=== PATIENT | male | born 1930 | race Caucasian/White ===

== ENCOUNTER → 2016-06-11 | Outpatient (CLI) | payer OTHER ==
[~2016-06-11] MED LIST: CHOL3000 PO; COEN150C4 PO; CYAN500L3 PO; GLUC1500 PO; LOSA50TA6 PO; METF-312 PO; METO-169 PO; OMEG120017 PO; SIMV-8 PO; VITA400C97 PO; WARF2.5T PO
[2016-06-11 09:12] LABS: Albumin 3.5 g/dL (3.4-5.0); BUN/Creatinine Ratio 17.2; Bilirubin, Total 0.7 mg/dL (0.2-1.0); Calcium 9.1 mg/dL (8.5-10.1); Total Protein 7.7 g/dL (6.4-8.2)
== END | disposition home or self-care (01) ==
LOC: LAB 07:26
PROVIDERS: ATTEND Internal Medicine
DX: N40.0 Benign prostatic hyperplasia without lower urinary tract symptoms (principal); E11.9 Type 2 diabetes mellitus without complications; E78.5 Hyperlipidemia, unspecified; N18.3 Chronic kidney disease, stage 3 (moderate)
CPT/HCPCS: 36415; 80053; 80061; 82607; 83036

== ENCOUNTER → 2016-09-09 | Outpatient (CLI) | payer OTHER ==
[2016-09-09 11:57] LABS: Cholesterol 215 mg/dL (< 200); HDL Cholesterol 43 mg/dL (40-59); LDL Cholesterol 164 mg/dL (< 100); Triglycerides 121 mg/dL (< 150)
== END | disposition home or self-care (01) ==
LOC: LAB 10:47
PROVIDERS: ATTEND Internal Medicine
DX: Z00.00 Encounter for general adult medical examination without abnormal findings (principal)
CPT/HCPCS: 36415; 80061; 82043; 83036

== ENCOUNTER → 2016-12-02 | Outpatient (CLI) | payer OTHER ==
[~2016-12-02] MED LIST changes: -METF-312 PO; +METF-370 PO
[2016-12-02 15:09] LABS: Basophils # (auto) 0.1 uL; Basophils % (auto) 0.6 % (0.0-2.0); CONDITION Y; Eosinophils # (auto) 0.1 uL; Eosinophils % (auto) 1.1 % (0.0-7.0); Hematocrit 39.7 % (41.0-53.0); Hemoglobin 13.4 g/dL (13.5-17.5); Lymphocytes # (auto) 1.7 uL; Mean Corpuscular Hemoglobin 33.4 pg (28.0-32.0); Mean Corpuscular Hgb Conc. 33.8 g/dL (32.0-36.0); Mean Corpuscular Volume 99.1 fL (80.0-100.0); Mean Platelet Volume 8.3 fL (7.4-10.4); Monocytes % (auto) 10.1 % (0.0-12.0); Neutrophils # (auto) 6.6 uL; Neutrophils % (auto) 70.2 % (37.0-80.0); Platelet Count (auto) 230 10^3/uL (140-450); Red Cell Distribution Width 15.1 % (11.6-16.0); White Blood Cell 9.4 10^3/uL (4.4-10.8)
[2016-12-02 15:14] LABS: Urine Bilirubin Negative (Negative); Urine Blood Negative /uL (Negative); Urine Color Yellow (Yellow); Urine Glucose Normal (Normal); Urine Ketone Negative (Negative); Urine Nitrite Negative (Negative); Urine RBC 1 /hpf (0 - 3); Urine Squamous Epithelial Cell FEW /hpf (<5); Urine Urobilinogen Normal (Negative)
[2016-12-02 15:23] LABS: INR 2.49 (0.9-1.15); Partial Thromboplastin Time 44.1 sec (22.64-33.71)
[2016-12-02 15:25] LABS: Albumin 3.5 g/dL (3.4-5.0); Bilirubin, Total 0.4 mg/dL (0.2-1.0); Calcium 8.8 mg/dL (8.5-10.1); Potassium 4.2 mmol/L (3.5-5.1); Total Protein 7.9 g/dL (6.4-8.2)
[2016-12-02 15:26] LABS: Prothrombin Time 27.4 sec (9.37-12.3)
== END | disposition home or self-care (01) ==
LOC: LAB 14:37
PROVIDERS: ATTEND Internal Medicine
DX: Z01.818 Encounter for other preprocedural examination (principal)
CPT/HCPCS: 36415; 80053; 81001; 85025; 85610; 85730

== ENCOUNTER 2017-02-18 13:30 | Emergency (ER) | payer OTHER ==
[~2017-02-18] VITALS: Ht 172.7 cm; Wt 90.7 kg
[2017-02-18 14:06] VITALS: BP 128/71
== END 2017-02-18 15:05 | disposition home or self-care (01) ==
LOC: ER 13:30
DX: S52.501A Unspecified fracture of the lower end of right radius, initial encounter for closed fracture (principal); S52.611A Displaced fracture of right ulna styloid process, initial encounter for closed fracture; E11.9 Type 2 diabetes mellitus without complications; I10 Essential (primary) hypertension; Z86.73 Personal history of transient ischemic attack (TIA), and cerebral infarction without residual deficits; Z95.1 Presence of aortocoronary bypass graft; Z79.899 Other long term (current) drug therapy; W10.9XXA Fall (on) (from) unspecified stairs and steps, initial encounter; Y93.89 Activity, other specified; Y99.8 Other external cause status; Y92.89 Other specified places as the place of occurrence of the external cause

== ENCOUNTER → 2017-05-02 | Outpatient (CLI) | payer OTHER ==
[2017-05-02 12:49] LABS: Albumin 3.2 g/dL (3.4-5.0); BUN/Creatinine Ratio 16.7; Bilirubin, Total 0.5 mg/dL (0.2-1.0); Calcium 10.4 mg/dL (8.5-10.1); Potassium 4.4 mmol/L (3.5-5.1); Total Protein 8.1 g/dL (6.4-8.2)
== END | disposition home or self-care (01) ==
LOC: LAB 09:57
PROVIDERS: ATTEND Physician Assistant
DX: I10 Essential (primary) hypertension (principal); E11.9 Type 2 diabetes mellitus without complications; E78.5 Hyperlipidemia, unspecified
CPT/HCPCS: 36415; 80053; 80061; 83036

== ENCOUNTER 2017-06-09 18:22 | Emergency (ER) | payer OTHER ==
[~2017-06-09] VITALS: Ht 170.2 cm; Wt 87.1 kg
[2017-06-09 18:31] VITALS: BP 98/50
[2017-06-09] MEDS ORDERED: BACITRACIN TOP OINT 1 UD PKG TOP ONE (21:30)
== END 2017-06-09 21:51 | disposition home or self-care (01) ==
LOC: ER 18:22
DX: S01.01XA Laceration without foreign body of scalp, initial encounter (principal); I25.10 Atherosclerotic heart disease of native coronary artery without angina pectoris; I10 Essential (primary) hypertension; E11.9 Type 2 diabetes mellitus without complications; Z95.1 Presence of aortocoronary bypass graft; Z79.01 Long term (current) use of anticoagulants; Z79.899 Other long term (current) drug therapy; W22.8XXA Striking against or struck by other objects, initial encounter; Y93.89 Activity, other specified; Y99.8 Other external cause status; Y92.89 Other specified places as the place of occurrence of the external cause
CPT/HCPCS: 12002

== ENCOUNTER → 2017-11-07 | Outpatient (CLI) | payer OTHER ==
[2017-11-07 11:54] LABS: Basophils # (auto) 0 uL; Basophils % (auto) 0.6 % (0.0-2.0); Eosinophils # (auto) 0.1 uL; Hemoglobin 13.2 g/dL (13.5-17.5); Lymphocytes # (auto) 1.4 uL; Lymphocytes % (auto) 19.6 % (10.0-50.0); Mean Corpuscular Hemoglobin 32.1 pg (28.0-32.0); Mean Corpuscular Hgb Conc. 32.3 g/dL (32.0-36.0); Mean Corpuscular Volume 99.4 fL (80.0-100.0); Monocytes # (auto) 0.7 uL; Monocytes % (auto) 10.4 % (0.0-12.0); Neutrophils # (auto) 4.7 uL; Neutrophils % (auto) 68.4 % (37.0-80.0); Platelet Count (auto) 151 10^3/uL (140-450); Red Blood Cells 4.13 10^6/uL (4.5-5.90); Red Cell Distribution Width 15.1 % (11.8-14.3); White Blood Cell 6.9 10^3/uL (4.4-10.8)
[2017-11-07 12:56] LABS: Albumin 3.4 g/dL (3.4-5.0); Bilirubin, Total 0.7 mg/dL (0.2-1.0); Calcium 9.7 mg/dL (8.5-10.1); Total Protein 7.4 g/dL (6.4-8.2)
== END | disposition home or self-care (01) ==
LOC: LAB 11:05
PROVIDERS: ATTEND Physician Assistant
DX: E78.5 Hyperlipidemia, unspecified (principal); I48.1 Persistent atrial fibrillation; G47.33 Obstructive sleep apnea (adult) (pediatric); E11.22 Type 2 diabetes mellitus with diabetic chronic kidney disease; I12.9 Hypertensive chronic kidney disease with stage 1 through stage 4 chronic kidney disease, or unspecified chronic kidney disease; N18.3 Chronic kidney disease, stage 3 (moderate); Z79.899 Other long term (current) drug therapy; R80.9 Proteinuria, unspecified; Z79.01 Long term (current) use of anticoagulants
CPT/HCPCS: 36415; 80053; 80061; 83036; 84153; 84154; 85025

== ENCOUNTER → 2018-02-02 | Outpatient (CLI) | payer OTHER | END | disposition home or self-care (01) | LOC: XYW 10:59 | PROVIDERS: ATTEND Internal Medicine Cardiovascular Disease | DX: I08.1 Rheumatic disorders of both mitral and tricuspid valves (principal); I48.2 Chronic atrial fibrillation; I27.20 Pulmonary hypertension, unspecified; J44.9 Chronic obstructive pulmonary disease, unspecified; E11.9 Type 2 diabetes mellitus without complications; I11.0 Hypertensive heart disease with heart failure; I50.9 Heart failure, unspecified | CPT/HCPCS: 93306 ==

== ENCOUNTER → 2018-07-20 | Outpatient (CLI) | payer OTHER ==
[~2018-07-20] MED LIST changes: +LOSA-46 PO; -LOSA50TA6 PO; -METF-370 PO
== END | disposition home or self-care (01) ==
LOC: RT 08:38
PROVIDERS: ATTEND Internal Medicine Pulmonary Disease
DX: R06.00 Dyspnea, unspecified (principal); I10 Essential (primary) hypertension; Z87.891 Personal history of nicotine dependence
CPT/HCPCS: 94060; 94727; 94729; J7611; 94640

== ENCOUNTER → 2018-11-09 | Outpatient (CLI) | payer OTHER ==
[~2018-11-09] MED LIST changes: +FURO40TA4 PO; +HYDR50TA69 PO; +POTA-167 PO
== END | disposition home or self-care (01) ==
LOC: XYW 10:35
PROVIDERS: ATTEND Internal Medicine
DX: I08.1 Rheumatic disorders of both mitral and tricuspid valves (principal); I48.91 Unspecified atrial fibrillation; I70.0 Atherosclerosis of aorta
CPT/HCPCS: 93306

== ENCOUNTER → 2018-12-19 | Outpatient (CLI) | payer OTHER ==
[~2018-12-19] VITALS: Ht 170.2 cm; Wt 89.8 kg
[~2018-12-19] MED LIST changes: +ADENOSINE 76 MG in GIVE UN-DILUTED 0 ML IV STA; -LOSA-46 PO; +LOSA-69 PO
[2018-12-19 09:30] VITALS: BP 147/72
== END | disposition home or self-care (01) ==
LOC: XY 07:31
PROVIDERS: ATTEND Internal Medicine
DX: R06.02 Shortness of breath (principal)
CPT/HCPCS: 78452; 93017; A9500; J0153

== ENCOUNTER → 2019-01-29 | Outpatient (CLI) | payer OTHER ==
[~2019-01-29] MED LIST changes: -ADENOSINE 76 MG in GIVE UN-DILUTED 0 ML IV STA
[2019-01-29 08:05] LABS: Basophils # (auto) 0.2 uL; Basophils % (auto) 3.2 % (0.0-2.0); Eosinophils # (auto) 0.1 uL; Eosinophils % (auto) 1.2 % (0.0-7.0); Hematocrit 39.1 % (41.0-53.0); Hemoglobin 13.2 g/dL (13.5-17.5); Lymphocytes % (auto) 18.8 % (10.0-50.0); Mean Corpuscular Hemoglobin 33.7 pg (28.0-32.0); Mean Corpuscular Hgb Conc. 33.8 g/dL (32.0-36.0); Mean Corpuscular Volume 99.8 fL (80.0-100.0); Monocytes # (auto) 0.6 uL; Monocytes % (auto) 12.6 % (0.0-12.0); Neutrophils # (auto) 3.3 uL; Neutrophils % (auto) 64.2 % (37.0-80.0); Platelet Count (auto) 142 10^3/uL (140-450); Red Blood Cells 3.92 10^6/uL (4.5-5.90); White Blood Cell 5.1 10^3/uL (4.4-10.8)
[2019-01-29 09:36] LABS: Potassium 5.5 mmol/L (3.5-5.1)
[2019-01-29 09:46] LABS: Albumin 3.2 g/dL (3.4-5.0); BUN/Creatinine Ratio 20.2; Bilirubin, Total 0.6 mg/dL (0.2-1.0); Calcium 9.2 mg/dL (8.5-10.1); Total Protein 7.4 g/dL (6.4-8.2)
== END | disposition home or self-care (01) ==
LOC: LAB 07:46
PROVIDERS: ATTEND Physician Assistant
DX: Z12.5 Encounter for screening for malignant neoplasm of prostate (principal); I11.0 Hypertensive heart disease with heart failure; I50.32 Chronic diastolic (congestive) heart failure; J44.9 Chronic obstructive pulmonary disease, unspecified; I48.2 Chronic atrial fibrillation; E11.319 Type 2 diabetes mellitus with unspecified diabetic retinopathy without macular edema
CPT/HCPCS: 36415; 80053; 80061; 83036; 84153; 85025

== ENCOUNTER → 2019-04-12 | Outpatient (CLI) | payer OTHER | END | disposition home or self-care (01) | LOC: XYW 09:37 | PROVIDERS: ATTEND Internal Medicine | DX: I08.1 Rheumatic disorders of both mitral and tricuspid valves (principal); I48.91 Unspecified atrial fibrillation; I27.20 Pulmonary hypertension, unspecified; Z87.891 Personal history of nicotine dependence; Z88.1 Allergy status to other antibiotic agents; Z95.1 Presence of aortocoronary bypass graft; Z98.890 Other specified postprocedural states; Z82.49 Family history of ischemic heart disease and other diseases of the circulatory system | CPT/HCPCS: 93306 ==

== ENCOUNTER → 2019-11-22 | Outpatient (CLI) | payer OTHER ==
[2019-11-22 10:45] LABS: Basophils # (auto) 0.1 10 ^3/uL (0-0.2); Eosinophils # (auto) 0.1 10 ^3/uL (0-0.8); Eosinophils % (auto) 1.1 % (0.0-7.0); Hematocrit 37.6 % (41.0-53.0); Lymphocytes # (auto) 0.8 10 ^3/uL (0.4-5.4); Lymphocytes % (auto) 12.9 % (10.0-50.0); Mean Corpuscular Hemoglobin 32.1 pg (28.0-32.0); Mean Corpuscular Hgb Conc. 31.9 g/dL (32.0-36.0); Mean Corpuscular Volume 100.5 fL (80.0-100.0); Monocytes # (auto) 0.7 10 ^3/uL (0-1.3); Neutrophils # (auto) 4.8 10 ^3/uL (1.6-8.6); Platelet Count (auto) 158 10^3/uL (140-450); Red Blood Cells 3.75 10^6/uL (4.5-5.90); Red Cell Distribution Width 17.2 % (11.8-14.3); White Blood Cell 6.5 10^3/uL (4.4-10.8)
[2019-11-22 11:34] LABS: Potassium 4.8 mmol/L (3.5-5.1)
[2019-11-22 11:44] LABS: Albumin 3.3 g/dL (3.4-5.0); BUN/Creatinine Ratio 15.9; Calcium 9.1 mg/dL (8.5-10.1)
[2019-11-22 12:05] LABS: Total Protein 7.5 g/dL (6.4-8.2)
== END | disposition home or self-care (01) ==
LOC: LAB 10:02
PROVIDERS: ATTEND Physician Assistant
DX: I50.9 Heart failure, unspecified (principal); J44.9 Chronic obstructive pulmonary disease, unspecified; E78.5 Hyperlipidemia, unspecified; G47.33 Obstructive sleep apnea (adult) (pediatric); R35.1 Nocturia
CPT/HCPCS: 36415; 80053; 80061; 84153; 85025

== ENCOUNTER 2019-12-10 12:35 | Inpatient (IN) | payer OTHER ==
[~2019-12-10] VITALS: Ht 167.6 cm; Wt 89.0 kg
[2019-12-10] MEDS ORDERED: ZINC SULFATE 220mg CAP or TAB PO ONE (13:00)
[2019-12-10] MEDS ORDERED: ASCORBIC ACID 500 MG TAB PO ONE (13:00)
[2019-12-10] MEDS ORDERED: AZITHROMYCIN 500MG/ 250ML 250 ML IV ONE (13:00)
[2019-12-10] MEDS ORDERED: methylPREDNISolone SOD SUCC 125 MG/2 ML VL IV ONE (13:00)
[2019-12-10] MEDS ORDERED: MORPHINE SULF INJ 2 MG/ML SYRINGE 1ML IV PRN ×3 (14:00→15:00)
[2019-12-10] MEDS ORDERED: NITROGLYCERIN 0.4 MG SL TAB SL PRN ×2 (14:00→15:00)
[2019-12-10 14:03] LABS: Basophils # (auto) 0 10 ^3/uL (0-0.2); Basophils % (auto) 0.7 % (0.0-2.0); Eosinophils # (auto) 0 10 ^3/uL (0-0.8); Lymphocytes % (auto) 11.4 % (10.0-50.0); Monocytes # (auto) 0.5 10 ^3/uL (0-1.3)
[2019-12-10 14:05] LABS: Eosinophils % (auto) 0.4 % (0.0-7.0); Hematocrit 35.4 % (41.0-53.0); Hemoglobin 11.9 g/dL (13.5-17.5); Lymphocytes # (auto) 0.6 10 ^3/uL (0.4-5.4); Mean Corpuscular Hgb Conc. 33.6 g/dL (32.0-36.0); Mean Corpuscular Volume 110.1 fL (80.0-100.0); Monocytes % (auto) 10.3 % (0.0-12.0); Neutrophils # (auto) 3.8 10 ^3/uL (1.6-8.6); Neutrophils % (auto) 77.2 % (37.0-80.0); Platelet Count (auto) 171 10^3/uL (140-450); Red Blood Cells 3.21 10^6/uL (4.5-5.90); Red Cell Distribution Width 17.9 % (11.8-14.3); White Blood Cell 4.9 10^3/uL (4.4-10.8)
[2019-12-10 14:21] LABS: Albumin 3.3 g/dL (3.4-5.0); Anion Gap 3 (5-15); Blood Urea Nitrogen 29 mg/dL (7-18); Calcium 9.2 mg/dL (8.5-10.1); Carbon Dioxide 26 mmol/L (21-32); Chloride 114 mmol/L (98-107); Glucose 122 mg/dL (74-106); Sodium 143 mmol/L (136-145)
[2019-12-10 14:24] LABS: Lactic Acid w/Reflex 4.2 mmol/L (0.4-2.0)
[2019-12-10 14:29] LABS: Alanine Aminotransferase 21 U/L (16-61); Alkaline Phosphatase 132 U/L (45-117); Aspartate Aminotransferase 31 U/L (15-37); BUN/Creatinine Ratio 17.3; Bilirubin, Total 0.7 mg/dL (0.2-1.0); CRP High Sensitivity 1.12 mg/dL (< 0.3); GFR African American 50 mL/min; GFR Non-African American 41 mL/min; Lactate Dehydrogenase 293 U/L (87-241); Total Protein 8.1 g/dL (6.4-8.2)
[2019-12-10 14:32] LABS: Potassium 6.1 mmol/L (3.5-5.1)
[2019-12-10] MEDS ORDERED: CALCIUM GLUC 4.65meq/50ml D5AE 50 ML IV ONE (14:45)
[2019-12-10] MEDS ORDERED: SODIUM BICARBONATE 8.4 % INJ 50ML VIAL IV ONE (14:45)
[2019-12-10] MEDS ORDERED: CYANOCOBALAMIN (B-12) 1000 MCG/1 ML VIAL IM ONE (14:45)
[2019-12-10] MEDS ORDERED: SODIUM BICARBONATE 8.4% INJ 50ML SYRINGE IV ONE (15:00)
[2019-12-10] MEDS ORDERED: HYDROcodone-ACET 5/325MG TAB PO PRN (15:00)
[2019-12-10] MEDS ORDERED: ALUM & MAG HYDROX-SIMETH LIQ(MAALOX) 30 ML PO PRN (15:00)
[2019-12-10] MEDS ORDERED: FUROSEMIDE 40 MG/4 ML VIAL IV ONE (15:00)
[2019-12-10] MEDS ORDERED: ALBUTEROL SULF 2.5 MG/0.5ML(0.5%) NEB SOLN NEB ONE (15:00)
[2019-12-10] MEDS ORDERED: ONDANSETRON HCL 4 MG/2 ML VIAL IV PRN (15:00)
[2019-12-10] MEDS ORDERED: DOCUSATE SOD 100 MG CAP PO PRN (15:00)
[2019-12-10] MEDS ORDERED: SODIUM ZIRCONIUM CYCL 10 GM PAK PO ONE (15:00)
[2019-12-10] MEDS ORDERED: DEXTROSE (50%) 50ML SYRG IV ONE (15:00)
[2019-12-10] MEDS ORDERED: LORazepam 0.5 MG TAB PO PRN (15:00)
[2019-12-10] MEDS ORDERED: ACETAMINOPHEN 325 MG TAB PO PRN (15:00)
[2019-12-10] MEDS ORDERED: InsuLIN REG 1unit/0.01ml Soln (100units/ml) IV ONE (15:00)
[2019-12-10 16:59] LABS: INR 3.98 (0.9-1.15); Partial Thromboplastin Time 44.5 sec (23.64-32.05)
[2019-12-10] MEDS ORDERED: ATOR20TA50 PO (17:46)
[2019-12-10] MEDS ORDERED: AMLO5TAB15 PO (17:46)
[2019-12-10] MEDS ORDERED: MET50T PO (17:46)
[2019-12-10] MEDS ORDERED: BENZ200C64 PO (17:48)
[2019-12-10] MEDS ORDERED: POTA10TA32 PO (17:48)
[2019-12-10] MEDS ORDERED: CYAN100056 PO (17:52)
[2019-12-10] MEDS ORDERED: VITA10006 PO (17:53)
[2019-12-10] MEDS ORDERED: ASCO500T11 PO (17:57)
[2019-12-10] MEDS ORDERED: [UNRECOGNIZED DRUG - CODE] PO (17:57)
[2019-12-10] MEDS ORDERED: IPRATROPIUM BROM 0.5 MG/2.5ML INH SOL NEB SCH (18:00)
[2019-12-10] MEDS ORDERED: ALBUTEROL SULF 2.5 MG/0.5ML(0.5%) NEB SOLN NEB SCH (18:00)
[2019-12-10] MEDS: FUROSEMIDE 40 MG/4 ML VIAL IV SCH (18:07)
[2019-12-10] MEDS: ATORVASTATIN 20 MG TAB PO SCH (21:30)
[2019-12-10] MEDS: METOPROLOL SUCCINATE XL 50 MG TAB PO SCH (21:30)
[2019-12-10] MEDS: methylPREDNISolone SOD SUCC 40 MG/ML VL IV SCH (21:30)
[2019-12-10] MEDS ORDERED: ALBUTEROL SULF HFA 90MCG INH 200DOSE IN SCH (22:00)
[2019-12-10] MEDS: ALBUTEROL SULF 2.5 MG/0.5ML(0.5%) NEB SOLN NEB SCH (23:41)
[2019-12-10] MEDS: IPRATROPIUM BROM 0.5 MG/2.5ML INH SOL NEB SCH (23:41)
[2019-12-11] MEDS: IPRATROPIUM BROM 0.5 MG/2.5ML INH SOL NEB SCH ×7 (02:22→22:14)
[2019-12-11] MEDS: ALBUTEROL SULF 2.5 MG/0.5ML(0.5%) NEB SOLN NEB SCH ×7 (02:22→22:14)
[2019-12-11 03:43] VITALS: BP 109/50
[2019-12-11] MEDS: methylPREDNISolone SOD SUCC 40 MG/ML VL IV SCH ×2 (06:07→14:14)
[2019-12-11] MEDS: FUROSEMIDE 40 MG/4 ML VIAL IV SCH (06:07)
[2019-12-11 06:54] LABS: Basophils # (auto) 0 10 ^3/uL (0-0.2); Eosinophils # (auto) 0 10 ^3/uL (0-0.8); Hemoglobin 11.7 g/dL (13.5-17.5); Lymphocytes # (auto) 0.3 10 ^3/uL (0.4-5.4); Monocytes # (auto) 0.2 10 ^3/uL (0-1.3); Neutrophils # (auto) 5.9 10 ^3/uL (1.6-8.6); White Blood Cell 6.4 10^3/uL (4.4-10.8)
[2019-12-11 06:55] LABS: Basophils % (auto) 0.1 % (0.0-2.0); Hematocrit 34.3 % (41.0-53.0); Mean Corpuscular Hemoglobin 36.5 pg (28.0-32.0); Mean Corpuscular Hgb Conc. 34.1 g/dL (32.0-36.0); Mean Corpuscular Volume 107.2 fL (80.0-100.0); Monocytes % (auto) 3.8 % (0.0-12.0); Neutrophils % (auto) 91.1 % (37.0-80.0); Platelet Count (auto) 155 10^3/uL (140-450); Red Cell Distribution Width 16.9 % (11.8-14.3)
[2019-12-11 07:06] LABS: Partial Thromboplastin Time 43.1 sec (23.64-32.05)
[2019-12-11 07:09] LABS: Albumin 3.2 g/dL (3.4-5.0); Anion Gap 7 (5-15); Blood Urea Nitrogen 31 mg/dL (7-18); Calcium 8.9 mg/dL (8.5-10.1); Carbon Dioxide 25 mmol/L (21-32); Chloride 107 mmol/L (98-107); Magnesium 2.1 mg/dL (1.6-2.6); Potassium 4.3 mmol/L (3.5-5.1); Sodium 139 mmol/L (136-145)
[2019-12-11 07:17] LABS: Alanine Aminotransferase 22 U/L (16-61); Alkaline Phosphatase 124 U/L (45-117); Aspartate Aminotransferase 30 U/L (15-37); BUN/Creatinine Ratio 17.7; Bilirubin, Total 0.8 mg/dL (0.2-1.0); GFR African American 48 mL/min; GFR Non-African American 39 mL/min; Glucose 171 mg/dL (74-106); Phosphorus 4.4 mg/dL (2.5-4.90); Total Protein 7.8 g/dL (6.4-8.2)
[2019-12-11 07:27] LABS: INR 4.03 (0.9-1.15)
[2019-12-11] MEDS: AZITHROMYCIN 500MG/ 250ML 250 ML IV SCH (09:18)
[2019-12-11] MEDS: ASPirin 81 mg TAB PO SCH (09:18)
[2019-12-11] MEDS: METOPROLOL SUCCINATE XL 50 MG TAB PO SCH ×2 (09:18→22:24)
[2019-12-11] MEDS: CHOLECALCIFEROL (VITD3) 1,000IU=25mCg TAB PO SCH (09:19)
[2019-12-11] MEDS ORDERED: WARFARIN SODIUM 2.5 MG TAB PO SCH (10:00)
[2019-12-11] MEDS ORDERED: POTASSIUM CHL 10 Meq TABLET PO SCH (10:00)
[2019-12-11] MEDS ORDERED: LOSARTAN POTASSIUM 50 MG TAB PO SCH (10:00)
[2019-12-11 11:10] LABS: Urine Bacteria NONE SEEN /hpf (None Seen); Urine Blood Negative /uL (Negative); Urine Hyaline Cast FEW /lpf (0 - 2); Urine Specific Gravity 1.009 (1.001-1.035); Urine WBC 2 /hpf (0 - 3)
[2019-12-11 11:16] LABS: Alcohol, Urine < 3.0 mg/dL (0-10); Amphetamine Screen, Urine NEGATIVE (NEGATIVE); Barbiturate Scree,Urine NEGATIVE (NEGATIVE); Benzodiazephine Screen, Urine NEGATIVE (NEGATIVE); Cannabinoid Screen, Urine NEGATIVE (NEGATIVE); Cocaine Screen, Urine NEGATIVE (NEGATIVE); Opiate Scree,Urine NEGATIVE (NEGATIVE); Phencyclidine Screen, Urine NEGATIVE (NEGATIVE)
[2019-12-11 18:00] VITALS: BP 113/68
[2019-12-11 19:50] VITALS: BP 110/65
[2019-12-11 22:00] VITALS: BP 110/65
[2019-12-11] MEDS: ATORVASTATIN 20 MG TAB PO SCH (22:24)
[2019-12-11] MEDS ORDERED: PNEUMOCOCCAL VACC POLYS 25 MCG/0.5 ML VIAL IM ONE (23:00)
[2019-12-12] MEDS: ALBUTEROL SULF 2.5 MG/0.5ML(0.5%) NEB SOLN NEB SCH ×6 (02:54→22:19)
[2019-12-12] MEDS: IPRATROPIUM BROM 0.5 MG/2.5ML INH SOL NEB SCH ×6 (02:54→22:19)
[2019-12-12 05:00] VITALS: BP 102/48
[2019-12-12 07:57] LABS: INR 2.97 (0.9-1.15)
[2019-12-12 08:00] VITALS: BP 110/65
[2019-12-12] MEDS: AZITHROMYCIN 500MG/ 250ML 250 ML IV SCH (09:15)
[2019-12-12] MEDS: methylPREDNISolone SOD SUCC 40 MG/ML VL IV SCH (09:16)
[2019-12-12] MEDS: CHOLECALCIFEROL (VITD3) 1,000IU=25mCg TAB PO SCH (09:16)
[2019-12-12] MEDS: ASPirin 81 mg TAB PO SCH (09:17)
[2019-12-12] MEDS: FUROSEMIDE 40 MG/4 ML VIAL IV SCH (09:17)
[2019-12-12 09:46] VITALS: BP 111/64
[2019-12-12] MEDS: METOPROLOL SUCCINATE XL 50 MG TAB PO SCH ×2 (10:00→22:22)
[2019-12-12 13:59] VITALS: BP 106/60
[2019-12-12 16:30] VITALS: BP 112/71
[2019-12-12 21:57] VITALS: BP 119/74
[2019-12-12] MEDS: ATORVASTATIN 20 MG TAB PO SCH (22:21)
[2019-12-13] VITALS (7 sets, daily range): BP systolic 104–131; BP diastolic 54–74
[2019-12-13] MEDS: IPRATROPIUM BROM 0.5 MG/2.5ML INH SOL NEB SCH ×6 (02:00→22:21)
[2019-12-13] MEDS: ALBUTEROL SULF 2.5 MG/0.5ML(0.5%) NEB SOLN NEB SCH ×6 (02:00→22:21)
[2019-12-13 07:44] LABS: Basophils # (auto) 0 10 ^3/uL (0-0.2); Eosinophils # (auto) 0 10 ^3/uL (0-0.8); Monocytes # (auto) 0.9 10 ^3/uL (0-1.3); Monocytes % (auto) 9.2 % (0.0-12.0); Platelet Count (auto) 146 10^3/uL (140-450)
[2019-12-13 07:45] LABS: Basophils % (auto) 0.2 % (0.0-2.0); Hematocrit 33.7 % (41.0-53.0); Hemoglobin 11.1 g/dL (13.5-17.5); Lymphocytes # (auto) 0.6 10 ^3/uL (0.4-5.4); Lymphocytes % (auto) 6.3 % (10.0-50.0); Mean Corpuscular Hemoglobin 34.5 pg (28.0-32.0); Mean Corpuscular Hgb Conc. 33.1 g/dL (32.0-36.0); Mean Corpuscular Volume 104.5 fL (80.0-100.0); Neutrophils # (auto) 8.3 10 ^3/uL (1.6-8.6); Neutrophils % (auto) 84.3 % (37.0-80.0); Red Blood Cells 3.22 10^6/uL (4.5-5.90); Red Cell Distribution Width 17.1 % (11.8-14.3); White Blood Cell 9.8 10^3/uL (4.4-10.8)
[2019-12-13 07:59] LABS: INR 1.95 (0.9-1.15)
[2019-12-13 08:16] LABS: Calcium 9.2 mg/dL (8.5-10.1); Potassium 4.7 mmol/L (3.5-5.1)
[2019-12-13 08:19] LABS: BUN/Creatinine Ratio 37.1
[2019-12-13] MEDS: ASPirin 81 mg TAB PO SCH (09:10)
[2019-12-13] MEDS: methylPREDNISolone SOD SUCC 40 MG/ML VL IV SCH (09:10)
[2019-12-13] MEDS: CHOLECALCIFEROL (VITD3) 1,000IU=25mCg TAB PO SCH (09:10)
[2019-12-13] MEDS: FUROSEMIDE 40 MG/4 ML VIAL IV SCH (09:11)
[2019-12-13] MEDS: METOPROLOL SUCCINATE XL 50 MG TAB PO SCH ×2 (10:00→23:34)
[2019-12-13] MEDS ORDERED: AZITHROMYCIN 250 MG TAB PO SCH (10:00)
[2019-12-13] MEDS ORDERED: WARFARIN SODIUM 2 MG TAB PO ONE (17:00)
[2019-12-13] MEDS ORDERED: HYDROcodone-ACET 5/325MG TAB PO PRN (18:30)
[2019-12-13] MEDS: ATORVASTATIN 20 MG TAB PO SCH (23:33)
[2019-12-14] MEDS: IPRATROPIUM BROM 0.5 MG/2.5ML INH SOL NEB SCH ×6 (02:04→22:00)
[2019-12-14] MEDS: ALBUTEROL SULF 2.5 MG/0.5ML(0.5%) NEB SOLN NEB SCH ×6 (02:04→22:00)
[2019-12-14 05:43] LABS: INR 1.58 (0.9-1.15); Partial Thromboplastin Time 31.5 sec (23.64-32.05)
[2019-12-14 05:44] VITALS: BP 107/69
[2019-12-14 05:47] LABS: Potassium 4.6 mmol/L (3.5-5.1)
[2019-12-14 05:56] LABS: BUN/Creatinine Ratio 38.6; Calcium 9.3 mg/dL (8.5-10.1)
[2019-12-14 08:00] VITALS: BP 125/54
[2019-12-14 09:00] VITALS: BP 100/52
[2019-12-14] MEDS ORDERED: predniSONE 20 MG TAB PO ONE (09:30)
[2019-12-14] MEDS ORDERED: FUROSEMIDE 40 MG/4 ML VIAL IV ONE (09:30)
[2019-12-14] MEDS ORDERED: levoFLOXacin 250 MG TAB PO ONE (09:30)
[2019-12-14] MEDS: ASPirin 81 mg TAB PO SCH (09:44)
[2019-12-14] MEDS: CHOLECALCIFEROL (VITD3) 1,000IU=25mCg TAB PO SCH (09:44)
[2019-12-14] MEDS: FUROSEMIDE 40 MG/4 ML VIAL IV SCH (09:45)
[2019-12-14] MEDS: METOPROLOL SUCCINATE XL 50 MG TAB PO SCH (09:45)
[2019-12-14] MEDS: predniSONE 20 MG TAB PO SCH (10:48)
[2019-12-14 12:53] VITALS: BP 113/67
[2019-12-14] MEDS ORDERED: WARFARIN SODIUM 2 MG TAB PO ONE (17:00)
[2019-12-14 18:00] VITALS: BP 123/61
[2019-12-14 22:00] VITALS: BP 142/104
[2019-12-14] MEDS: PIPERACILLIN-TAZOB 3.375GM 100 ML IV SCH ×2 (23:32→23:33)
[2019-12-14] MEDS: METOPROLOL TARTRATE 25 MG TAB PO SCH (23:34)
[2019-12-14] MEDS: ATORVASTATIN 20 MG TAB PO SCH (23:34)
[2019-12-15] MEDS: IPRATROPIUM BROM 0.5 MG/2.5ML INH SOL NEB SCH ×4 (02:00→14:16)
[2019-12-15] MEDS: ALBUTEROL SULF 2.5 MG/0.5ML(0.5%) NEB SOLN NEB SCH ×4 (02:00→14:16)
[2019-12-15 05:00] VITALS: BP 104/64
[2019-12-15 06:48] LABS: Basophils # (auto) 0 10 ^3/uL (0-0.2); Eosinophils # (auto) 0 10 ^3/uL (0-0.8); Eosinophils % (auto) 0.5 % (0.0-7.0); Hemoglobin 11.7 g/dL (13.5-17.5); Lymphocytes # (auto) 0.9 10 ^3/uL (0.4-5.4); Mean Corpuscular Hgb Conc. 34.7 g/dL (32.0-36.0); Neutrophils # (auto) 6.8 10 ^3/uL (1.6-8.6); White Blood Cell 8.9 10^3/uL (4.4-10.8)
[2019-12-15] MEDS: PIPERACILLIN-TAZOB 3.375GM 100 ML IV SCH ×2 (06:49→13:11)
[2019-12-15 06:50] LABS: Basophils % (auto) 0.2 % (0.0-2.0); Hematocrit 33.5 % (41.0-53.0); Lymphocytes % (auto) 9.7 % (10.0-50.0); Mean Corpuscular Hemoglobin 37.6 pg (28.0-32.0); Mean Corpuscular Volume 108.1 fL (80.0-100.0); Monocytes # (auto) 1.2 10 ^3/uL (0-1.3); Neutrophils % (auto) 76.6 % (37.0-80.0); Nucleated Red Blood Cells % 0.1 %; Platelet Count (auto) 155 10^3/uL (140-450)
[2019-12-15 06:54] LABS: INR 1.54 (0.9-1.15)
[2019-12-15 07:44] LABS: Albumin 3.2 g/dL (3.4-5.0)
[2019-12-15 09:00] VITALS: BP 121/53
[2019-12-15] MEDS ORDERED: levoFLOXacin 250 MG TAB PO SCH (10:00)
[2019-12-15] MEDS: METOPROLOL TARTRATE 25 MG TAB PO SCH (10:39)
[2019-12-15] MEDS: FUROSEMIDE 40 MG/4 ML VIAL IV SCH (10:39)
[2019-12-15] MEDS: ASPirin 81 mg TAB PO SCH (10:39)
[2019-12-15] MEDS: predniSONE 20 MG TAB PO SCH (10:39)
[2019-12-15] MEDS: CHOLECALCIFEROL (VITD3) 1,000IU=25mCg TAB PO SCH (10:40)
[2019-12-15 13:00] VITALS: BP 106/72
[2019-12-15] MEDS ORDERED: CIP250T PO (15:58)
[2019-12-15 16:23] VITALS: BP 109/66
[2019-12-15 16:46] VITALS: BP 134/60
[2019-12-15] MEDS ORDERED: WARFARIN SODIUM 2 MG TAB PO ONE (17:00)
== END 2019-12-15 17:26 | disposition home or self-care (01) | DRG 177 ==
LOC: ER 12:35 → TELE 12:36 → TELE-WESTW 12-11 19:50
PROVIDERS: ADMIT Hospitalist; ATTEND Internal Medicine Nephrology
DX: J15.6 Pneumonia due to other Gram-negative bacteria (principal); J96.01 Acute respiratory failure with hypoxia; I50.43 Acute on chronic combined systolic (congestive) and diastolic (congestive) heart failure; J44.1 Chronic obstructive pulmonary disease with (acute) exacerbation; E44.0 Moderate protein-calorie malnutrition; J84.9 Interstitial pulmonary disease, unspecified; I13.0 Hypertensive heart and chronic kidney disease with heart failure and stage 1 through stage 4 chronic kidney disease, or unspecified chronic kidney disease; J44.0 Chronic obstructive pulmonary disease with (acute) lower respiratory infection; I48.20 Chronic atrial fibrillation, unspecified; N17.9 Acute kidney failure, unspecified; E87.5 Hyperkalemia; E66.9 Obesity, unspecified; I25.5 Ischemic cardiomyopathy; G47.33 Obstructive sleep apnea (adult) (pediatric); G89.29 Other chronic pain; I27.20 Pulmonary hypertension, unspecified; N18.9 Chronic kidney disease, unspecified; D63.8 Anemia in other chronic diseases classified elsewhere; Z20.828 Contact with and (suspected) exposure to other viral communicable diseases; I08.3 Combined rheumatic disorders of mitral, aortic and tricuspid valves; I45.10 Unspecified right bundle-branch block; M19.90 Unspecified osteoarthritis, unspecified site; D53.9 Nutritional anemia, unspecified; D50.9 Iron deficiency anemia, unspecified; R74.0 Nonspecific elevation of levels of transaminase and lactic acid dehydrogenase [LDH]; M54.5 Low back pain; I25.10 Atherosclerotic heart disease of native coronary artery without angina pectoris; E78.5 Hyperlipidemia, unspecified; E11.22 Type 2 diabetes mellitus with diabetic chronic kidney disease; F17.200 Nicotine dependence, unspecified, uncomplicated; Z95.1 Presence of aortocoronary bypass graft; Z68.31 Body mass index [BMI] 31.0-31.9, adult; Z88.1 Allergy status to other antibiotic agents; Z79.01 Long term (current) use of anticoagulants; Z79.899 Other long term (current) drug therapy; Z82.49 Family history of ischemic heart disease and other diseases of the circulatory system; Z95.2 Presence of prosthetic heart valve; Z71.6 Tobacco abuse counseling
CPT/HCPCS: 36415; 36600; 71045; 80048; 80053; 80307; 81001; 82040; 82565; 82728; 82805; 82962; 83605; 83615; 83735; 83880; 84100; 84132; 84484; 85025; 85379; 85610; 85730; 86141; 87040; 87070; 87077; 87086; 87186; 87205; 87804; 87880; 93005; 93306; 94640; 94644; 96365; 96372; 96375; 97116; 97163; 97530; G0378; J0610; J1815; J2543